=== PATIENT | female | born 1985 | race Caucasian/White ===

== ENCOUNTER 2021-02-04 20:59 | Inpatient (IN) | payer OTHER ==
[~2021-02-04] VITALS: Ht 167.6 cm; Wt 119.4 kg
[2021-02-04 23:19] LABS: BASOPHIL 0.2 % (0-2); EOSINOPHIL 1.4 % (0-5); HCT 40.5 % (37.0-47.0); LYMPHOCYTE 16.3 % (15-48); MCH 27.1 pg (25.0-31.0); MCHC 32.1 g/dL (32.0-36.0); MCV 84.4 fL (78.0-100.0); MONOCYTE 3.6 % (0-12); MPV 9.1 fL (6.0-9.5); NEUTROPHIL 77.7 % (41-80); NRBC 0; PLT 247 K/uL (150-400); RDW 14.4 % (11.5-14.0)
[2021-02-04 23:42] LABS: ALBUMIN 3.2 g/dL (3.4-5.0); BILIRUBIN - TOTAL 0.3 mg/dL (0.2-1.0); BUN/CREAT RATIO (CALC) 6.3 RATIO; CREATININE 0.79 mg/dL (0.51-0.95); POTASSIUM 3.8 mmol/L (3.5-5.1); TOTAL PROTEIN 8.2 g/dL (6.4-8.2)
[2021-02-04 23:46] LABS: PRO-BNP 26 pg/mL (<125)
[2021-02-05] MEDS ORDERED: AMITRIPTYLINE150 MG PO (03:48)
[2021-02-05] MEDS ORDERED: COZAAR100 MG PO (03:48)
[2021-02-05] MEDS ORDERED: METFORMIN HCL500 MG PO (03:50)
[2021-02-05] MEDS ORDERED: INDERAL 40MG TA40 MG PO (03:50)
[2021-02-05] MEDS ORDERED: HCTZ12.5 MG PO (03:50)
[2021-02-05] MEDS ORDERED: ZOLOFT100 MG PO (03:51)
[2021-02-05] MEDS ORDERED: BICTOZA SC (03:52)
--- NOTE | 2021-02-05 14:46 | NUR ---
1318 CALLED INTO THE ROOM FOR COMPLIANTS OF INCREASED SHORTNESS OF AIR AND BREATHING PROBLEMS. V/S: 129/75, HR 107, RESP 20, O2 SATS 93% ON 2L NC. DR. LO AT THE BEDSIDE WITH THE NURSE. NO NEW ORDERS AT THIS TIME WILL CONTINUE TO MONITOR FOR CHANGES.
[2021-02-06 06:25] LABS: BASOPHIL 0.2 % (0-2); EOSINOPHIL 0 % (0-5); HCT 37.2 % (37.0-47.0); HGB 11.3 g/dl (12.5-16.0); LYMPHOCYTE 16.5 % (15-48); MCH 26.7 pg (25.0-31.0); MCHC 30.4 g/dL (32.0-36.0); MCV 87.9 fL (78.0-100.0); MPV 9.2 fL (6.0-9.5); NEUTROPHIL 77.6 % (41-80); NRBC 0; PLT 266 K/uL (150-400); RBC 4.23 M/uL (4.20-5.40); WBC 8.5 K/uL (4.0-10.5)
[2021-02-06 06:42] LABS: ALBUMIN 2.4 g/dL (3.4-5.0); BILIRUBIN - TOTAL 0.2 mg/dL (0.2-1.0); BUN/CREAT RATIO (CALC) 23.9 RATIO; CREATININE 0.67 mg/dL (0.51-0.95); GLOBULIN (CALCULATION) 4.4 g/dL; POTASSIUM 4.1 mmol/L (3.5-5.1); TOTAL PROTEIN 6.8 g/dL (6.4-8.2)
[2021-02-07 06:33] LABS: ALBUMIN 2.6 g/dL (3.4-5.0); BASOPHIL 0.1 % (0-2); BILIRUBIN - TOTAL 0.2 mg/dL (0.2-1.0); BUN/CREAT RATIO (CALC) 26.1 RATIO; CREATININE 0.69 mg/dL (0.51-0.95); EOSINOPHIL 0 % (0-5); GLOBULIN (CALCULATION) 4.5 g/dL; HCT 37.4 % (37.0-47.0); HGB 11.7 g/dl (12.5-16.0); LYMPHOCYTE 16.9 % (15-48); MCHC 31.3 g/dL (32.0-36.0); MCV 86.4 fL (78.0-100.0); MONOCYTE 6.1 % (0-12); MPV 9.2 fL (6.0-9.5); NEUTROPHIL 75.8 % (41-80); NRBC 0; PLT 325 K/uL (150-400); POTASSIUM 3.7 mmol/L (3.5-5.1); RBC 4.33 M/uL (4.20-5.40); RDW 14.8 % (11.5-14.0); TOTAL PROTEIN 7.1 g/dL (6.4-8.2); WBC 7.6 K/uL (4.0-10.5)
[2021-02-08] MEDS ORDERED: DEXAMETHASONE 2M2 MG PO (10:13)
== END 2021-02-08 12:10 | disposition home or self-care (01) | DRG 177 ==
LOC: FER 20:59 → FMS 02-05 01:45
PROVIDERS: Emergency Medicine Emergency Medical Services; Family Medicine; ADMIT Internal Medicine
PROC: 8E0ZXY6 Isolation (ICD-10-PCS; principal; 2021-02-05)
PROC: XW033E5 Introduction of Remdesivir Anti-infective into Peripheral Vein, Percutaneous Approach, New Technology Group 5 (ICD-10-PCS; 2021-02-05)
PROC: XW0DXM6 Introduction of Baricitinib into Mouth and Pharynx, External Approach, New Technology Group 6 (ICD-10-PCS; 2021-02-05)
PROC: XW033G6 Introduction of REGN-COV2 Monoclonal Antibody into Peripheral Vein, Percutaneous Approach, New Technology Group 6 (ICD-10-PCS; 2021-02-05)
DX: U07.1 COVID-19 (principal); J12.82 Pneumonia due to coronavirus disease 2019; J96.01 Acute respiratory failure with hypoxia; E11.9 Type 2 diabetes mellitus without complications; I10 Essential (primary) hypertension; E66.9 Obesity, unspecified; F41.9 Anxiety disorder, unspecified; Z79.84 Long term (current) use of oral hypoglycemic drugs; Z79.899 Other long term (current) drug therapy; Z83.3 Family history of diabetes mellitus; Z82.49 Family history of ischemic heart disease and other diseases of the circulatory system
CPT/HCPCS: 36415; 36600; 71275; 80053; 82803; 82962; 83880; 84145; 84484; 85025; 85379; 93005; 94010; 94640; 94664; 94760; 94762; C9399; J1650; J1885; J2405; J2930; J7030; J7050; J8540; M0243; Q0244; Q9967; U0002